=== PATIENT | female | born 1975 | race Caucasian/White ===

== ENCOUNTER 2019-05-23 19:04 | Emergency (ER) | payer OTHER, SELFPAY ==
--- NOTE | ~2019-05-23 | XR_ITS ---
EXAMINATION: XR chest 2V 05/23/2019 20:02 INDICATION: Cough and vomiting PROCEDURE: 2 view chest COMPARISON: 07/09/2018 FINDINGS: The lungs are clear. The cardiomediastinal silhouette is within normal limits. There are no pleural effusions. There is no pneumothorax suspected. IMPRESSION: 1: NO ACUTE CARDIOPULMONARY DISEASE. Reviewed, dictated and finalized at location A. [employer]
[2019-05-23 19:10] VITALS: BP 115/79; PULSE 81; RESP 14; TEMP 36.5; O2SAT 96
--- NOTE | 2019-05-23 19:19 | ED.NAVMDI ---
HPI - Nausea/Vomiting/Diarrhea General Chief complaint: Nausea/Vomiting/Diarrhea Stated complaint: throwing up Time Seen by Provider: 05/23/19 19:19 Source: patient Mode of arrival: ambulatory Limitations: no limitations History of Present Illness HPI Narrative: 43-year-old woman comes in today complaining of vomiting and diarrhea for last 2-1/2 hours. She states that she felt sick to her stomach before hand and had some intermittent abdominal pain. She states her period started several days ago and was at his usual time. She states that she felt like she had a nasal blockage last few days and more recently she felt like her nose opened up and she is having postnasal drainage. She is concerned that she has food poisoning. She denies blood in her stools, blood in her vomitus, black stools, fever and sick contacts. MD elicited complaint: nausea, vomiting, diarrhea and abdominal pain Onset (ago): hour(s) (2.5) Description of vomiting: food contents Description of diarrhea: watery Associated nausea: Yes Associated abdominal pain: Yes Location of pain: epigastric Radiation: does not radiate Pain consistency: constant Exacerbating factors: none Relieving factors: none Associated symptoms: cough Related Data Home Medications Medication Instructions Recorded Confirmed gabapentin 100 mg PO TID 05/23/19 05/23/19 hydroxyzine HCl 50 mg PO TID PRN 05/23/19 05/23/19 methimazole 20 mg PO DAILY 05/23/19 05/23/19 propranolol 40 mg PO Q12H 05/23/19 05/23/19 Allergies Allergy/AdvReac Type Severity Reaction Status Date / Time chlorhexidine Allergy Unknown rash, hives Verified 03/17/16 10:40 Penicillins Allergy Unknown rash, hives Verified 03/17/16 10:40 Review of Systems Constitutional: Constitutional: Denies chills, Denies fever(s) and Denies weakness Eyes: Eyes: Denies change in vision and Denies photophobia ENT: Denies dysphagia, Reports nasal congestion and Denies sore throat Cardiovascular: Cardiovascular: Denies chest pain, Reports rapid heart rate and Denies radiating jaw, neck or arm pain Respiratory: Respiratory: Denies cough, Denies dyspnea and Denies wheezing Gastrointestinal: Gastrointestinal: Reports abdominal pain, Reports diarrhea, Reports nausea and Reports vomiting Genitourinary: Genitourinary: Denies nocturia and Denies dysuria Musculoskeletal: Musculoskeletal: Denies back pain and Denies joint swelling Integumentary/Breasts: Skin/Breast: Denies pruritus, Denies erythema and Denies rash Neurologic: Denies vertigo, Denies syncope and Denies focal weakness Hematologic/Lymphatic: Hematologic/Lymphatic: Denies easy bleeding and Denies easy bruising Allergic/Immunologic: Allergic/Immunologic: Denies lip swelling and Denies wheezing PMFSH Past Medical History Medical History Anxiety Back pain Depression Graves disease Neuropathy Surgical History Surgical History History of knee surgery History of surgery on arm left for fibrotic lesion Family History Family History (Updated 03/17/16 @ 10:50 by DOCTOR UNKNOWN) Mother Family history of mental disorder Hypertension Family history of cardiovascular disease Social History Social History Smoking status: Light tobacco smoker Alcohol intake: current Substance use: current Substance use type: marijuana Exam Const: General: alert Orientation/consciousness: patient oriented x3 Other: moderate to severe acute distress. HENMT: Ears: TM's normal bilaterally and EAC's normal Mouth: Yes Normal oral and palatal mucosa present and Yes moist mucous membranes Throat: posterior oropharynx normal and uvula midline Eyes: Cornea: corneas normal Pupils: Equal, round and reactive pupils present EOM: EOMs intact bilaterally Resp: Effort & Inspection: normal respiratory effor
[2019-05-23] MEDS: ONDANSETRON HCL ODT 4 MG TABLET PO (19:27)
[2019-05-23] MEDS: ONDANSETRON INJ 4 MG/2 ML VIAL IV PUSH (19:35)
[2019-05-23] MEDS: SODIUM CHLORIDE 0.9% IV 1,000 ML 999 ML IV CONT (19:36)
[2019-05-23 19:49] LABS: Basophils Absolute Auto 0.05 K/mm3 (0.00-0.10); Basophils Percent Auto 0.4 % (0.0-1.0); Eosinophils Absolute Auto 0.04 K/mm3 (0.02-0.50); Eosinophils Percent Auto 0.3 % (1.0-6.0); Hematocrit 42.7 % (35.0-49.0); Hemoglobin 14.7 g/dL (12.0-15.0); Immature Granulocyte Absolute 0.05 K/mm3 (0.00-0.00); Immature Granulocyte Percent A 0.4 % (0.0-0.0); Lymphocytes Percent Auto 22.4 % (18.0-42.0); Mean Corpuscular HGB Conc 34.4 g/dL (32.0-36.0); Mean Corpuscular Hemoglobin 29.1 pg (27.0-31.0); Mean Corpuscular Volume 84.6 fL (78.0-102.0); Mean Platelet Volume 9.7 fl (9.2-11.8); Monocytes Absolute Auto 0.49 K/mm3 (0.10-0.90); Monocytes Percent Auto 4.1 % (2.0-11.0); Neutrophils Absolute Auto 8.7 K/mm3 (1.7-7.2); Neutrophils Percent Auto 72.4 % (50.0-70.0); Platelet Count Result 316 K/mm3 (150-420); Red Blood Count 5.05 M/mm3 (4.20-5.40); Red Cell Distribution Width 13.2 % (11.6-14.4)
[2019-05-23 20:09] LABS: Alanine Aminotransferase 12 U/L (14-59); Albumin Level 4.2 g/dL (3.4-5.0); Alkaline Phosphatase 66 U/L (46-116); Anion Gap 20.5 mmol/L (7-16); Aspartate Amino Transferase 16 U/L (15-37); Bilirubin,Total 0.4 mg/dL (0.00-1.00); Blood Urea Nitrogen 18 mg/dL (7-18); Carbon Dioxide 22 mmol/L (21-32); Chloride 102 mmol/L (98-108); Estimated CRCL calculation 61 ml/min; Estimated Glomerular Filt Rate > 60; Glucose 146 mg/dL (70-99); Lipase 69 U/L (73-393); Osmolality Calculated 296 mOsm/kg (285-295); Potassium 3.5 mmol/L (3.5-5.1); Sodium 141 mmol/L (136-145); Total Protein 8.6 g/dL (6.4-8.2)
[2019-05-23 20:10] VITALS: BP 130/83; PULSE 68; RESP 15; O2SAT 96
[2019-05-23 20:15] LABS: Calcium 9.6 mg/dL (8.5-10.1)
[2019-05-23 20:35] LABS: Salicylate 4.3 mg/dL (2.8-20.0)
[2019-05-23 20:36] LABS: Acetaminophen 0 ug/mL (10-30)
[2019-05-23 20:37] LABS: Ethanol < 3 mg/dL (0-6)
[2019-05-23] MEDS: SODIUM CHLORIDE 0.9% IV 1,000 ML 999 ML (20:53)
[2019-05-23 21:38] LABS: Add Urine Microscopic? YES; Appearance Urine Clear (Clear); Bilirubin Urine Negative (Negative); Blood Urine 3+ (Negative); Color Urine Yellow (Yellow); Glucose Urine UA Negative (Negative); Ketones Urine 3+ (Negative); Leukocyte Esterase Ur Negative LEU/UL (Negative); Nitrate Urine Negative (Negative); Protein Urine Trace (Negative); Specific Grav Ur 1.025 (1.010-1.020); Urobilinogen Urine 0.2 mg/dL (0.2-1.0)
[2019-05-23 21:42] LABS: Pregnancy On Board Control Positive; Specific Gravity Ur 1.025 (1.010-1.035); Urine Pregnancy Test Negative
[2019-05-23 21:46] LABS: Bacteria Urine Trace /hpf; Squamous Epithelial Cell Urine Few /hpf (Few); WBC Urine None seen /hpf (0-3)
[2019-05-23 21:50] LABS: Amphetamine Screen Urine Negative (Negative); Barbiturate Screen Urine Negative (Negative); Benzodiazepines Screen Urine Negative (Negative); Cannabinoid Screen Urine Positive (Negative); Cocaine Screen Urine Negative (Negative); Methadone Screen Urine Negative (Negative); Opiate Screen Urine Negative (Negative); Phencyclidine Screen Urine Negative (Negative)
[2019-05-23 22:08] VITALS: BP 135/80; PULSE 68; RESP 14; O2SAT 97
== END 2019-05-23 22:09 | disposition home or self-care (01) ==
PROVIDERS: Emergency Provider Emergency Medicine
DX: K52.9 Noninfective gastroenteritis and colitis, unspecified (principal)
CPT/HCPCS: 36415; 71046; 80053; 80307; 81001; 81025; 83690; 85025; 96361; 96374; 99283; 99284; A9270; J2405; J7030